=== PATIENT | male | born 1990 | race Caucasian/White ===

== ENCOUNTER 2018-06-20 09:14 | Emergency (ER) | payer SELFPAY ==
[~2018-06-20] VITALS: Ht 188 cm; Wt 75.0 kg
[2018-06-20 09:18] VITALS: BP 141/81; TEMP 97.9
[2018-06-20] MEDS ORDERED: CEPHALEXIN500 M1 PO (11:20)
[2018-06-20 11:38] VITALS: PULSE 83
== END 2018-06-20 11:38 | disposition home or self-care (01) ==
LOC: COL.ER 09:14
DX: S90.851A Superficial foreign body, right foot, initial encounter (principal); Z23 Encounter for immunization; W22.8XXA Striking against or struck by other objects, initial encounter

== ENCOUNTER → 2018-06-21 | Emergency (ER) | payer SELFPAY ==
[~2018-06-21] MED LIST: CEPHALEXIN500 M1 PO
== END ==
LOC: COL.ER 13:27
DX: Z72.9 Problem related to lifestyle, unspecified (principal)

== ENCOUNTER 2018-06-25 10:39 | Day surgery (SDC) | payer SELFPAY ==
[~2018-06-25] VITALS: Ht 188 cm; Wt 74.1 kg
[2018-06-25 11:14] VITALS: BP 115/63; PULSE 69; TEMP 97.5
[2018-06-25 14:31] VITALS: BP 147/95; PULSE 79; TEMP 97.9
--- NOTE | 2018-06-25 14:31 | NUR ---
The patient arrived back to [facility] from the operating room at this time. The patient appears alert and oriented and denies any pain at this time. The patient's post operative vital signs were started at this time. The patient's right foot is covered with an debi wrap dressing that appears clean, dry, and intact. The patient received a nerve block pre op and it appears to still be in place at this time. The patient requests to try some apple juice at this time. Call light is within reach. Will continue to monitor the patient.
[2018-06-25 14:46] VITALS: BP 135/53; PULSE 64
--- NOTE | 2018-06-25 14:46 | NUR ---
The patient's was brought back to be at his bedside. The patient appears to be tolerating the juice well and denies wanting anything to eat at this time. The patient continues to deny any pain at this time. Vital signs appear stable. Will continue to monitor the patient.
[2018-06-25 15:01] VITALS: BP 125/75; PULSE 62
--- NOTE | 2018-06-25 15:01 | NUR ---
The patient verbalizes a desire to be discharged home. The patient's IV to his right hand was removed and a pressure dressing was applied to the site. Discharge instructions were reviewed with the patient and his at this time. They both verbalized understanding and have no questions for the nurse at this time. The nurse instructed the patient to get dressed and notify the staff when he is ready to be escorted out.
--- NOTE | 2018-06-25 15:13 | NUR ---
The patient was escorted out via wheelchair to a private vehicle by SALAZAR Chiang. The patient's belongings and discharge paperwork were sent with him. The patient's friend is present to drive him home.
== END 2018-06-25 15:13 | disposition home or self-care (01) ==
LOC: SDCO 10:39
DX: S91.341A Puncture wound with foreign body, right foot, initial encounter (principal); W27.3XXA Contact with needle (sewing), initial encounter; L30.9 Dermatitis, unspecified; F17.210 Nicotine dependence, cigarettes, uncomplicated
CPT/HCPCS: J0690; J2250; J2405; J2704; J3010; J7120